=== PATIENT | male | born 1990 | race Caucasian/White ===

== ENCOUNTER 2016-12-03 16:37 | Emergency (ER) | payer SELFPAY ==
[2016-12-03] MEDS ORDERED: Ketorolac 60 MG/2 ML SDV IM ONE (17:43)
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
[2016-12-03 18:59] VITALS: BP 129/70
--- NOTE | 2016-12-04 15:50 | CR ---
EXAM DATE: 12/03/16 PATIENT'S AGE: 26 Patient: YUSUF MELCHOR Facility: [place], [place] Site . Site : 1990 Study: XRay Extremity Right [id number]/10/2017 5:58:50 PM Ordering Physician: Kenny Pandya Final Report: INDICATION: Trauma. Technique: Three views right wrist. Findings: Mild ulna minus deformity. Subtle linear lucency involving the distal right ulna along its radial aspect makes exclusion of a subtle fracture not possible. Suggest clinical correlation for pain in this region. Repeat x-ray in 7-14 days could further evaluate. Mild soft tissue swelling right wrist dorsally. Right wrist otherwise negative. Dictated by Bandar Ashraf MD @ Dec 03 2016 6:08PM (Electronic Signature) Report Signed by Proxy. LAURA
== END 2016-12-03 18:35 | disposition home or self-care (01) ==
LOC: MW.ED 16:37
DX: S63.501A Unspecified sprain of right wrist, initial encounter (principal); S20.222A Contusion of left back wall of thorax, initial encounter; M62.830 Muscle spasm of back; F17.210 Nicotine dependence, cigarettes, uncomplicated; Y04.2XXA Assault by strike against or bumped into by another person, initial encounter
CPT/HCPCS: 73110; 96372; 99284; J1885; 99283

== ENCOUNTER 2017-03-23 11:20 | Emergency (ER) | payer SELFPAY ==
[2017-03-23 11:36] VITALS: BP 142/97
[2017-03-23] MEDS ORDERED: Ketorolac 60 MG/2 ML SDV IM ONE (11:55)
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
--- NOTE | 2017-03-23 16:40 | CR ---
EXAM DATE: 03/23/17 PATIENT'S AGE: 27 Patient: YUSUF MELCHOR Facility: [place], [place] Site . Site : 1990 Study: XRay Shoulder Right [id number]/29/2017 12:19:01 PM Ordering Physician: Doctor Duran Final Report: INDICATION: Right shoulder pain. TECHNIQUE: Shoulder radiographs 3 views COMPARISON: None FINDINGS: Bones: Alignment is normal. No acute fractures or aggressive osseous lesions seen. Joint spaces: The glenohumeral joint is unremarkable. The acromioclavicular (AC ) joint is normal in appearance. Soft tissues: The visualized hemithorax is unremarkable in appearance. No radiopaque foreign bodies are noted. IMPRESSION: 1. No acute osseous injuries are identified. Dictated by Ko De La Fuente MD @ 03/23/2017 12:31:35 PM Dictated by: Ko De La Fuente MD @ 03/23/2017 12:31:40 (Electronic Signature) Report Signed by Proxy. LAURA
== END 2017-03-23 13:12 | disposition home or self-care (01) ==
LOC: MW.ED 11:20
DX: M25.511 Pain in right shoulder (principal); F17.210 Nicotine dependence, cigarettes, uncomplicated; W19.XXXA Unspecified fall, initial encounter
CPT/HCPCS: 73030; 96372; 99283; A4566; J1885; J2360

== ENCOUNTER 2017-05-23 21:47 | Emergency (ER) | payer SELFPAY ==
[2017-05-23] MEDS ORDERED: Lidocaine 2% Viscous Solution 15 ML Cup PO ONE (21:57)
[2017-05-23] MEDS ORDERED: Benzocaine 20% Topical Spray UD MUCMEM ONE (21:57)
--- NOTE | 2017-05-23 22:02 | EDM.PDOC ---
ED HPI GENERAL MEDICAL PROBLEM - General Chief Complaint: ENT Problem Stated Complaint: TOOTH PAIN Time Seen by Provider: 05/23/17 21:59 - History of Present Illness INITIAL COMMENTS - FREE TEXT/NARRATIVE: HISTORY AND PHYSICAL: History of present illness: Patient 27-year-old white male presents with concern of dental pain he has an impacted left wisdom tooth that was supposed be extracted prior who now is swelling and increased pain he denies fever chills nausea vomiting Review of systems: As per history of present illness and below otherwise all systems reviewed and negative. Past medical history: As per history of present illness and as reviewed below otherwise noncontributory. Surgical history: As per history of present illness and as reviewed below otherwise noncontributory. Social history: No reported history of drug or alcohol abuse. Family history: As per history of present illness and as reviewed below otherwise noncontributory. Physical exam: HEENT: Atraumatic, normocephalic, pupils reactive, negative for conjunctival pallor or scleral icterus, mucous membranes moist, throat clear, neck supple, nontender, trachea midline. Patient is gingival swelling and tenderness in the region of left lower molar Lungs: Clear to auscultation, breath sounds equal bilaterally, chest nontender. Heart: S1S2, regular, negative for clicks, rubs, or JVD. Abdomen: Soft, nondistended, nontender. Negative for masses or hepatosplenomegaly. Negative for costovertebral tenderness. Pelvis: Stable nontender. Genitourinary: Deferred. Rectal: Deferred. Extremities: Atraumatic, negative for cords or calf pain. Neurovascular unremarkable. Neuro: Awake, alert, oriented. Cranial nerves II through XII unremarkable. Cerebellum unremarkable. Motor and sensory unremarkable throughout. Exam nonfocal. Diagnostics: None Therapeutics: None Impression: #1 dentalgia Definitive disposition and diagnosis as appropriate pending reevaluation and review of above. - Related Data Allergies Allergy/AdvReac Type Severity Reaction Status Date / Time No Known Allergies Allergy Verified 03/23/17 11:34 Home Meds: Home Meds Orphenadrine [Norflex] 100 mg PO BID #28 tab.er 03/23/17 [Rx] methylPREDNISolone [Medrol] 4 mg PO DAILY #21 tab.ds.pk 03/23/17 [Rx] Past Medical History Musculoskeletal History: Reports: Other (See Below) Other Musculoskeletal History: Broke L wrist - Infectious Disease History Infectious Disease History: Reports: Chicken Pox - Past Surgical History GI Surgical History: Reports: Hernia, Inguinal Social & Family History - Family History Family Medical History: Noncontributory - Tobacco Use Smoking Status *Q: Current Every Day Smoker Years of Tobacco use: 1 Packs/Tins Daily: 5 - Caffeine Use Caffeine Use: Reports: Coffee, Energy Drinks, Soda - Recreational Drug Use Recreational Drug Use: No Drug Use in Last 12 Months: No Recreational Drug Type: Reports: Marijuana/Hashish ED ROS GENERAL - Review of Systems Review Of Systems: ROS reveals no pertinent complaints other than HPI. ED EXAM, GENERAL - Physical Exam Exam: See Below (See dictation) Course - Orders/Labs/Meds Meds: Medications Discontinued Medications Generic Name Dose Route Start Last Admin Trade Name Onel PRN Reason Stop Dose Admin Benzocaine 2 each 05/23/17 21:57 Hurricaine One 20% MUCMEM 05/23/17 21:58 ONETIME ONE Lidocaine HCl 15 ml 05/23/17 21:57 Xylocaine 2% Viscous PO 05/23/17 21:58 ONETIME ONE Departure - Departure Time of Disposition: 22:01 Disposition: Home, Self-Care 01 Condition: Good Clinical Impression: Dentalgia - Discharge Information Referrals: PCP,None [Primary Care Provider] - Additional Instructions: The following information is given to patients seen in the emergency department who are being discharged to home. This information is to outline your options for follow-up care. We provide all patients seen in our emergency department with a follow-up referral. The need for follow-up, as well as the timing and circumstances, are variable depending upon the specifics of your emergency department visit. If you don't have a primary care physician on staff, we will provide you with a referral. We always advise you to contact your personal physician following an emergency department visit to inform them of the circumstance of the visit and for follow-up with them and/or the need for any referrals to a consulting specialist. The emergency department will also refer you to a specialist when appropriate. This referral assures that you have the opportunity for followup care with a specialist. All of these measure are taken in an effort to provide you with optimal care, which includes your followup. Under all circumstances we always encourage you to contact your private physician who remains a resource for coordinating your care. When calling for followup care, please make the office aware that this follow-up is from your recent emergency room visit. If for any reason you are refused follow-up, please contact the [facility] emergency department at and asked to speak to the emergency department charge nurse. Kellen Goetz as prescribed follow-up dentist as discussed return as needed as discussed
[2017-05-23 22:06] VITALS: BP 123/88
== END 2017-05-23 22:15 | disposition home or self-care (01) ==
LOC: MW.ED 21:47
DX: K08.89 Other specified disorders of teeth and supporting structures (principal); F17.210 Nicotine dependence, cigarettes, uncomplicated; Z79.899 Other long term (current) drug therapy
CPT/HCPCS: 99282; A9270